=== PATIENT | male | born 1975 | race African-American/Black ===

== ENCOUNTER 2016-11-18 19:59 | Emergency (ER) | payer MEDICAID ==
[~2016-11-18] VITALS: Ht 182.9 cm; Wt 86.5 kg
[2016-11-18 20:10] VITALS: BP 120/68
== END 2016-11-18 23:30 | disposition left against medical advice (07) ==
LOC: ER 19:59
DX: M79.601 Pain in right arm (principal); Z53.21 Procedure and treatment not carried out due to patient leaving prior to being seen by health care provider

== ENCOUNTER 2024-10-06 16:26 | Emergency (ER) | payer MEDICAID ==
[~2024-10-06] VITALS: Ht 182.9 cm; Wt 82.0 kg
[2024-10-06 16:42] VITALS: TEMP 36.7; O2SAT 99
[2024-10-06 18:37] VITALS: BP 140/77; PULSE 80; RESP 16; O2SAT 100
== END 2024-10-06 18:37 | disposition home or self-care (01) ==
LOC: ER 16:26
DX: M25.571 Pain in right ankle and joints of right foot (principal); Z88.0 Allergy status to penicillin
CPT/HCPCS: 99284; 73610; 73620; A6449